=== PATIENT | female | born 1990 | race Caucasian/White ===

== ENCOUNTER 2022-06-14 17:43 | Emergency (ER) | payer MEDICAID ==
[2022-06-14] MEDS ORDERED: Sodium Chloride 0.9% 1,000 ML IV ONE (20:38)
[2022-06-14] MEDS ORDERED: Ketorolac 30 MG/ML SDV IVPUSH ONE ×2 (20:39→22:26)
[2022-06-14] MEDS ORDERED: Morphine 4 MG/ML Syringe IVPUSH ONE (22:25)
== END 2022-06-14 23:19 | disposition home or self-care (01) ==
LOC: JD.ED 17:43
DX: N13.2 Hydronephrosis with renal and ureteral calculous obstruction (principal)
CPT/HCPCS: 36415; 74177; 80053; 81001; 83690; 85025; 96361; 96374; 96375; 96376; 99284; J1885; J2270; J7030

== ENCOUNTER 2022-08-06 21:03 | Emergency (ER) | payer OTHER, MEDICAID ==
[2022-08-06] MEDS ORDERED: HYDROmorphone 1 MG/ML Syringe IM ONE (21:33)
[2022-08-06] MEDS ORDERED: Ondansetron 4 MG Tab.DIS PO ONE (21:33)
[2022-08-06] MEDS ORDERED: Cyclobenzaprine 10 MG Tab PO ONE (21:33)
== END 2022-08-06 22:20 | disposition home or self-care (01) ==
LOC: JD.ED 21:03
DX: M25.511 Pain in right shoulder (principal); F17.210 Nicotine dependence, cigarettes, uncomplicated; F41.9 Anxiety disorder, unspecified; F32.A Depression, unspecified; Z79.899 Other long term (current) drug therapy
CPT/HCPCS: 73030; 96372; 99283; A9270; J1170

== ENCOUNTER 2022-08-16 22:33 | Emergency (ER) | payer MEDICAID, OTHER ==
[2022-08-17] MEDS ORDERED: Ketorolac 60 MG/2 ML SDV IM ONE (00:04)
[2022-08-17 00:30] LABS: CORONAVIRUS COVID-19 NAA NEGATIVE (NEGATIVE)
== END 2022-08-17 00:29 | disposition home or self-care (01) ==
LOC: JD.ED 22:33
DX: R51.9 Headache, unspecified (principal); F17.210 Nicotine dependence, cigarettes, uncomplicated; Z20.822 Contact with and (suspected) exposure to COVID-19
CPT/HCPCS: 0241U; 96372; 99284; J1885

== ENCOUNTER 2022-09-02 20:45 | Emergency (ER) | payer MEDICAID ==
[2022-09-03] MEDS ORDERED: Lidocaine 1% with EPINEPHrine 1:100,000 10 ML MDV INJECT ONE (00:06)
[2022-09-03] MEDS ORDERED: Bupivacaine 0.5%/EPINEPHrine 1:200,000 30 ML SDV INJECT ONE (00:47)
== END 2022-09-03 00:59 | disposition home or self-care (01) ==
LOC: JD.ED 20:45
DX: L02.214 Cutaneous abscess of groin (principal); J44.9 Chronic obstructive pulmonary disease, unspecified; Z91.018 Allergy to other foods; Z88.8 Allergy status to other drugs, medicaments and biological substances; Z79.899 Other long term (current) drug therapy; Z90.49 Acquired absence of other specified parts of digestive tract; Z87.891 Personal history of nicotine dependence
CPT/HCPCS: 10060; 87070; 87205; 99282

== ENCOUNTER 2022-10-18 19:17 | Emergency (ER) | payer MEDICAID ==
[2022-10-18] MEDS ORDERED: Ondansetron 4 MG/2 ML SDV IVPUSH ONE (20:38)
[2022-10-18] MEDS ORDERED: Sodium Chloride 0.9% 1,000 ML IV STA (20:38)
[2022-10-18] MEDS ORDERED: Sodium Chloride 0.9% 10 ML Syringe FLUSH PRN (20:39)
[2022-10-18 21:31] LABS: ESTIMATED GFR 86 mL/min (>60)
[2022-10-18 21:50] LABS: CORONAVIRUS COVID-19 NAA NEGATIVE (NEGATIVE)
== END 2022-10-18 22:55 | disposition home or self-care (01) ==
LOC: JD.ED 19:17
DX: A08.4 Viral intestinal infection, unspecified (principal); J44.9 Chronic obstructive pulmonary disease, unspecified; F17.210 Nicotine dependence, cigarettes, uncomplicated; Z79.01 Long term (current) use of anticoagulants; Z91.018 Allergy to other foods; Z88.8 Allergy status to other drugs, medicaments and biological substances; Z79.899 Other long term (current) drug therapy; Z20.822 Contact with and (suspected) exposure to COVID-19
CPT/HCPCS: 0241U; 36415; 71046; 80053; 81001; 83690; 85025; 86140; 87086; 96361; 96374; 99285; J2405; J3490; J7030; 99284

== ENCOUNTER 2022-11-08 11:56 | Inpatient (IN) | payer MEDICAID ==
[2022-11-08] MEDS ORDERED: Albuterol/Ipratropium 3.0-0.5 MG/3 ML Neb Soln NEB ONE (12:57)
[2022-11-08] MEDS ORDERED: Sodium Chloride 0.9% 1,000 ML IV ONE ×2 (12:57→14:39)
[2022-11-08] MEDS ORDERED: Ketorolac 30 MG/ML SDV IVPUSH ONE (13:26)
[2022-11-08] MEDS: Albuterol/Ipratropium 3.0-0.5 MG/3 ML Neb Soln NEB SCH ×2 (16:14→21:05)
[2022-11-08] MEDS ORDERED: Albuterol/Ipratropium 3.0-0.5 MG/3 ML Neb Soln NEB SCH (17:00)
[2022-11-08] MEDS: Azithromycin 250 MG Tab PO SCH (17:20)
[2022-11-08] MEDS: cefTRIAXone 1 GM in Sodium Chloride 0.9% 100 ML IV SCH (17:21)
[2022-11-08] MEDS: methylPREDNISolone Sodium Succinate 40 MG/1 ML SDV IVPUSH SCH ×2 (17:21→21:36)
[2022-11-08] MEDS: Lactated Ringers 1,000 ML IV SCH (18:14)
[2022-11-08] MEDS: Acetaminophen 325 MG Tab PO PRN (21:36)
[2022-11-09] MEDS: Albuterol/Ipratropium 3.0-0.5 MG/3 ML Neb Soln NEB SCH ×4 (06:38→20:39)
[2022-11-09] MEDS: Acetaminophen 325 MG Tab PO PRN ×2 (10:01→16:06)
[2022-11-09] MEDS: Azithromycin 250 MG Tab PO SCH (10:03)
[2022-11-09] MEDS: methylPREDNISolone Sodium Succinate 40 MG/1 ML SDV IVPUSH SCH ×2 (10:04→21:17)
[2022-11-09] MEDS: Lactated Ringers 1,000 ML IV SCH (10:12)
[2022-11-09] MEDS: cefTRIAXone 1 GM in Sodium Chloride 0.9% 100 ML IV SCH (16:07)
[2022-11-09] MEDS ORDERED: Non-Formulary Medication 1 Each (Albuterol Sulfate [Proair Digihaler] 90 MCG Aer.Pw.Bas) INH PRN (16:25)
[2022-11-09] MEDS ORDERED: Psyllium Husk Powder Sugar Free 5.85 GM Packet PO PRN (16:29)
[2022-11-09] MEDS ORDERED: Acetaminophen/oxyCODONE 325-5 MG Tab PO PRN (16:29)
[2022-11-09] MEDS ORDERED: Ondansetron 4 MG/2 ML SDV IVPUSH PRN (16:29)
[2022-11-09] MEDS ORDERED: hydrALAZINE 20 MG/ML SDV IVPUSH PRN (16:29)
[2022-11-09] MEDS ORDERED: Acetaminophen 325 MG Tab PO PRN (16:29)
[2022-11-09] MEDS ORDERED: guaiFENesin/Dextromethorphan 100-10 MG/5 ML Soln 5 ML Cup PO PRN (16:29)
[2022-11-09] MEDS ORDERED: Docusate Sodium 100 MG Cap PO PRN (16:29)
[2022-11-09] MEDS ORDERED: Non-Formulary Medication 1 Each (Omeprazole [Omeprazole] 40 MG Capsule.Dr) PO SCH (16:30)
[2022-11-09] MEDS ORDERED: Gabapentin 600 MG Tab PO SCH (21:00)
[2022-11-09] MEDS ORDERED: Gabapentin 100 MG Cap PO ONE (22:45)
[2022-11-09] MEDS: Venlafaxine 75 MG Cap.ER PO SCH (23:22)
[2022-11-09] MEDS ORDERED: QUEtiapine 25 MG Tab PO SCH (23:30)
[2022-11-09] MEDS: Pantoprazole 40 MG Tab.CR PO SCH (23:35)
[2022-11-09] MEDS: Apixaban 5 MG Tab PO SCH (23:37)
[2022-11-10] MEDS: Lactated Ringers 1,000 ML IV SCH (00:05)
[2022-11-10] MEDS: Pantoprazole 40 MG Tab.CR PO SCH (05:45)
[2022-11-10] MEDS: Albuterol/Ipratropium 3.0-0.5 MG/3 ML Neb Soln NEB SCH (06:31)
[2022-11-10] MEDS ORDERED: FENOFIBRATE MICRONIZED 130 MG PO SCH (09:00)
[2022-11-10] MEDS: Apixaban 5 MG Tab PO SCH (09:39)
[2022-11-10] MEDS: Venlafaxine 75 MG Cap.ER PO SCH (09:39)
[2022-11-10] MEDS: Azithromycin 250 MG Tab PO SCH (09:40)
[2022-11-10] MEDS: methylPREDNISolone Sodium Succinate 40 MG/1 ML SDV IVPUSH SCH (09:40)
[2022-11-10] MEDS ORDERED: Albuterol/Ipratropium 3.0-0.5 MG/3 ML Neb Soln NEB SCH (10:00)
[2022-11-10] MEDS ORDERED: QUEtiapine 25 MG Tab PO SCH (21:00)
== END 2022-11-10 12:21 | disposition home or self-care (01) | DRG 177 ==
LOC: JD.ED 11:56 → JD.MS 15:48
PROVIDERS: ADMIT Internal Medicine; ATTEND Internal Medicine
DX: U07.1 COVID-19 (principal); J44.9 Chronic obstructive pulmonary disease, unspecified; F17.210 Nicotine dependence, cigarettes, uncomplicated; J18.9 Pneumonia, unspecified organism; J96.01 Acute respiratory failure with hypoxia; J44.1 Chronic obstructive pulmonary disease with (acute) exacerbation; J44.0 Chronic obstructive pulmonary disease with (acute) lower respiratory infection; F17.200 Nicotine dependence, unspecified, uncomplicated; F43.10 Post-traumatic stress disorder, unspecified; G43.709 Chronic migraine without aura, not intractable, without status migrainosus; F41.9 Anxiety disorder, unspecified; F32.A Depression, unspecified; E66.9 Obesity, unspecified; Z88.8 Allergy status to other drugs, medicaments and biological substances; Z86.711 Personal history of pulmonary embolism; Z79.899 Other long term (current) drug therapy; Z79.01 Long term (current) use of anticoagulants; Z90.49 Acquired absence of other specified parts of digestive tract; Z90.710 Acquired absence of both cervix and uterus; Z86.16 Personal history of COVID-19
CPT/HCPCS: 36415; 36600; 71045; 71045-26; 80048; 80053; 82803; 85025; 87040; 93005; 94640; 94667; 94668; 94760; 94761; 99222; 99239; 99285; A9270-GY; J0696; J1885; J2920; J3490; J7030; J7120; J7620-GY; U0002